=== PATIENT | male | born 1970 | race Caucasian/White ===

== ENCOUNTER 2017-12-12 09:23 | Emergency (ER) | payer SELFPAY ==
--- NOTE | 2017-12-12 09:50 | ER Document Report ---
HPI - HPI Patient complains to provider of: right shoulder pain Onset: Other - 5 days Onset/Duration: Gradual, Persistent Pain Level: 4 Context: 47 yo male with right shoulder pain for 5 days, worse with movement. makes the right upper arm muscle hurt. 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 No neck pain but does have some pain around the scapula. No chest pain, sob, or cough. - REPRODUCTIVE Reproductive: DENIES: : Past Medical History - General Information source: Patient - Social History Smoking Status: Current Every Day Smoker Frequency of alcohol use: Occasional Drug Abuse: None Occupation: consturction Family History: Reviewed & Not Pertinent - Past Medical History Cardiac Medical History: Reports: Hx Hypertension Pulmonary Medical History: Reports: Hx Asthma Past Surgical History: Reports: Hx Orthopedic Surgery - right shoulder/wrist - Immunizations Hx Diphtheria, Pertussis, Tetanus Vaccination: Yes Vertical Provider Document - CONSTITUTIONAL Agree With Documented VS: Yes Exam Limitations: No Limitations General Appearance: Mild Distress - HEENT HEENT: Normocephalic - NECK Neck: Supple - non tender c spine - RESPIRATORY Respiratory: Breath Sounds Normal, No Respiratory Distress - CARDIOVASCULAR Cardiovascular: Regular Rate, Regular Rhythm - BACK Back: Normal Inspection - MUSCULOSKELETAL/EXTREMETIES Musculoskeletal/Extremeties: Tender - rioght trapezius-mild, increased pain with right shoulder abduction, No Edema - tender right bicep muscle(has been keeping arm flexed for 5 days) Notes: 2+ radial pulse, n/v/ intact - NEURO Level of Consciousness: Awake Motor/Sensory: No Motor Deficit, No Sensory Deficit - DERM Integumentary: Warm, Dry, No Rash Course - Re-evaluation Re-evalutation: 12/12/17 10:40 Karmen in the room with the exam, I asked if he is taking anything for pain and he said tramadol but it is not helping. I asked again if he had anything else for pain and he said no. The [place] controlled substance website showed #120 oxycodone 30mg prescription filled on 11-19-17, he has this filled every month. Will check xray. 12/12/17 11:23 arthritis on xray per rad,visualized lung field clear per rad. - Vital Signs Vital signs: Temp Pulse Resp BP Pulse Ox 97.8 F 83 20 129/81 H 94 12/12/17 09:39 12/12/17 09:39 12/12/17 09:39 12/12/17 09:39 12/12/17 09:39 Discharge - Discharge Clinical Impression: right shoulder joint pain, right upper arm muscle pain, Arthritis Condition: Good Disposition: HOME, SELF-CARE Instructions: Arthritis ([facility]), Sling to be Used ([facility]), Steroid Medication Additional Instructions: sling warm compress prednisone for 1 week take ultram for pain see orthopedics if persists to er if worse. Prescriptions: Prednisone [Deltasone 10 mg Tablet] 10 mg PO ASDIR PRN #21 tablet PRN Reason: Forms: Return to Work Referrals: GÓMEZ SMITH MD [ACTIVE STAFF] - Follow up as needed
--- NOTE | 2017-12-12 11:08 | RADIOLOGY REPORT (SQ) ---
EXAM DESCRIPTION: SHOULDER RIGHT 2 OR MORE VIEWS COMPLETED DATE/TIME: 12/12/2017 10:54 am REASON FOR STUDY: right shoulder pain COMPARISON: None. NUMBER OF VIEWS: Three views. TECHNIQUE: Internal rotation, external rotation, and Y view images acquired of the right shoulder. LIMITATIONS: None. FINDINGS: MINERALIZATION: Normal. BONES: No acute fracture or dislocation. No worrisome bone lesions. JOINTS: Mild to moderate osteoarthritis of the acromioclavicular and glenohumeral joints. VISUALIZED LUNGS AND RIBS: No pneumothorax. No rib fracture. SOFT TISSUES: No radiopaque foreign body. OTHER: No other significant finding. IMPRESSION: OSTEOARTHRITIS. NO RADIOGRAPHIC EVIDENCE OF ACUTE INJURY. TECHNICAL DOCUMENTATION: JOB ID: [id number] [employer]- All Rights Reserved Reading location - IP/workstation name: [email or web address]
[2017-12-12] MEDS ORDERED: KETOROLAC TROMETHAMINE 60 MG/2 ML SDV IM ONE (11:11)
[2017-12-12] MEDS ORDERED: PREDNISONE 20 MG TABLET PO ONE (11:19)
[2017-12-12 11:27] VITALS: BP 123/80
== END 2017-12-12 11:34 | disposition home or self-care (01) ==
LOC: ER 09:23
DX: M19.011 Primary osteoarthritis, right shoulder (principal); M25.511 Pain in right shoulder; M79.601 Pain in right arm; F17.200 Nicotine dependence, unspecified, uncomplicated; I10 Essential (primary) hypertension; J45.909 Unspecified asthma, uncomplicated
CPT/HCPCS: 99283; 96372; 73030; J1885; J7512

== ENCOUNTER 2017-12-28 08:41 | Emergency (ER) | payer SELFPAY ==
[2017-12-28] MEDS ORDERED: HYDROMORPHONE HCL INJ/PF 2 MG/ML AMPULE IV ONE (09:59)
[2017-12-28] MEDS ORDERED: ONDANSETRON HCL INJ/PF 4 MG/2 ML SDV IV ONE (09:59)
[2017-12-28] MEDS ORDERED: NORMAL SALINE 1000 ML 1,000 ML IV ONE (10:00)
--- NOTE | 2017-12-28 10:03 | ER Document Report ---
ED GI/ - General Chief Complaint: Testicular Pain Stated Complaint: GENITAL CONCERNS Time Seen by Provider: 12/28/17 09:36 Mode of Arrival: Ambulatory Information source: Patient Notes: Patient presents complaining of testicular pain that woke him up around 330 this morning. Patient complains of persistent pain. Patient feels as though the left testicle is hanging lower than normal and the right testicle is riding higher than normal. Patient denies any dysuria, frequency or penile discharge. Patient denies any back pain but does report lower suprapubic tenderness. TRAVEL OUTSIDE OF THE [place] IN LAST 30 DAYS: No - HPI Patient complains to provider of: Abdominal pain, Testicular pain. No: Flank pain, Vomiting Onset: This morning Timing/Duration: Sudden Quality of pain: Sharp Pain Level: 4 Location: Suprapubic, Left testicle, Right testicle Associated symptoms: denies: Dysuria, Erection problem, Fever, Nausea, Urinary hesitancy, Urinary frequency, Urinary retention, Urinary urgency, Vomiting Exacerbated by: Denies Relieved by: Denies Similar symptoms previously: No Recently seen / treated by doctor: No - Related Data Allergies/Adverse Reactions: No Known Allergies Allergy (Verified 12/12/17 09:26) Past Medical History - General Information source: Patient - Social History Smoking Status: Current Every Day Smoker Frequency of alcohol use: daily Drug Abuse: None Occupation: [employer] Family History: Reviewed & Not Pertinent Patient has suicidal ideation: No Patient has homicidal ideation: No - Past Medical History Cardiac Medical History: Reports: Hx Hypertension Pulmonary Medical History: Reports: Hx Asthma Renal/ Medical History: Denies: Hx Peritoneal Dialysis Past Surgical History: Reports: Hx Orthopedic Surgery - right shoulder/wrist - Immunizations Hx Diphtheria, Pertussis, Tetanus Vaccination: Yes Review of Systems - Review of Systems Constitutional: No symptoms reported. denies: Fever, Recent illness EENT: No symptoms reported Cardiovascular: No symptoms reported. denies: Chest pain Respiratory: No symptoms reported. denies: Cough, Short of breath Gastrointestinal: Abdominal pain. denies: Nausea, Vomiting Genitourinary: No symptoms reported. denies: Dysuria Male Genitourinary: Testicular pain. denies: Erectile dysfunction, Penile discharge Musculoskeletal: No symptoms reported Skin: No symptoms reported Hematologic/Lymphatic: No symptoms reported Neurological/Psychological: No symptoms reported Physical Exam - Vital signs Vitals: Temp Pulse Resp BP Pulse Ox 97.5 F 98 20 144/89 H 94 12/28/17 08:50 12/28/17 08:50 12/28/17 08:50 12/28/17 08:50 12/28/17 08:50 - General General appearance: Appears well, Alert In distress: None - HEENT Head: Normocephalic Eyes: Normal Nasal: Normal Mouth/Lips: Normal Mucous membranes: Normal Neck: Normal, Supple. No: Lymphadenopathy - Respiratory Respiratory status: No respiratory distress Chest status: Nontender Breath sounds: Normal. No: Rales, Rhonchi, Stridor, Wheezing Chest palpation: Normal - Cardiovascular Rhythm: Regular Heart sounds: S1 appreciated, S2 appreciated Murmur: No - Abdominal Inspection: Normal Distension: No distension Bowel sounds: Normal Tenderness: Tender - Suprapubic Organomegaly: No organomegaly - Genitourinary Inspection: Normal Tenderness: Testicle tender - Lateral testicular tenderness, Epididymis tender - Right epididymal tenderness Cremasteric reflex: Normal Scrotum: Normal - Back Back: Normal, Nontender. No: CVA tenderness - Extremities General upper extremity: Normal inspection, Normal ROM General lower extremity: Normal inspection, Normal ROM - Neurological Neuro grossly intact: Yes Cognition: Normal [place] Coma Scale Eye Opening: Spontaneous [place] Coma Scale Verbal: Oriented [place] Coma Scale Motor: Obeys Commands [place] Coma Scale Total: 15 - Psychological Associated symptoms: Normal affect, Normal mood - Skin Skin Temperature: Warm Skin Moisture: Dry Skin Color: Normal Course - Re-evaluation Re-evalutation: 12/28/17 12:36 Patient with findings concerning for epididymitis, no concern for torsion at this time. Discussed plan of care with patient. Patient verbalized understanding and agrees with plan of care. - Vital Signs Vital signs: Temp Pulse Resp BP Pulse Ox 97.5 F 57 L 16 132/86 H 95 12/28/17 13:27 12/28/17 13:27 12/28/17 13:27 12/28/17 13:27 12/28/17 13:27 - Laboratory Result Diagrams: 12/28/17 10:25 12/28/17 10:25 Laboratory results interpreted by me: 12/28/17 12/28/17 12/28/17 10:25 10:25 10:25 WBC 11.8 H BUN 26 H Glucose 111 H Urine Urobilinogen 2.0 H Labs- Entire Visit 12/28/17 12/28/17 12/28/17 10:25 10:25 10:25 WBC 11.8 H RBC 4.95 Hgb 15.0 Hct 43.4 MCV 88 MCH 30.3 MCHC 34.5 RDW 13.2 Plt Count 218 Seg Neutrophils % 67.3 Lymphocytes % 17.9 Monocytes % 12.0 Eosinophils % 1.9 Basophils % 0.9 Absolute Neutrophils 8.0 Absolute Lymphocytes 2.1 Absolute Monocytes 1.4 Absolute Eosinophils 0.2 Absolute Basophils 0.1 Sodium 142.7 Potassium 4.0 Chloride 102 Carbon Dioxide 28 Anion Gap 13 BUN 26 H Creatinine 1.04 Est GFR ( Amer) > 60 Est GFR (Non-Af Amer) > 60 Glucose 111 H Calcium 9.6 Urine Color YELLOW Urine Appearance SLIGHTLY-CLOUDY Urine pH 5.0 Ur Specific [place] 1.032 Urine Protein NEGATIVE Urine Glucose (UA) NEGATIVE Urine Ketones NEGATIVE Urine Blood NEGATIVE Urine Nitrite NEGATIVE Urine Bilirubin NEGATIVE Urine Urobilinogen 2.0 H Ur Leukocyte Esterase NEGATIVE Urine WBC (Auto) 3 Urine RBC (Auto) 1 U Hyaline Cast (Auto) 1 Squamous Epi Cells Auto 1 Urine Mucus (Auto) RARE Urine Ascorbic Acid NEGATIVE Chlamydia DNA (PCR) N.gonorrhoeae DNA (PCR) 12/28/17 10:25 WBC RBC Hgb Hct MCV MCH MCHC RDW Plt Count Seg Neutrophils % Lymphocytes % Monocytes % Eosinophils % Basophils % Absolute Neutrophils Absolute Lymphocytes Absolute Monocytes Absolute Eosinophils Absolute Basophils Sodium Potassium Chloride Carbon Dioxide Anion Gap BUN Creatinine Est GFR ( Amer) Est GFR (Non-Af Amer) Glucose Calcium Urine Color Urine Appearance Urine pH Ur Specific [place] Urine Protein Urine Glucose (UA) Urine Ketones Urine Blood Urine Nitrite Urine Bilirubin Urine Urobilinogen Ur Leukocyte Esterase Urine WBC (Auto) Urine RBC (Auto) U Hyaline Cast (Auto) Squamous Epi Cells Auto Urine Mucus (Auto) Urine Ascorbic Acid Chlamydia DNA (PCR) NOT DETECTED N.gonorrhoeae DNA (PCR) NOT DETECTED - Diagnostic Test Radiology reviewed: Reports reviewed Discharge - Discharge Clinical Impression: Scrotal pain, Epididymitis Condition: Stable Disposition: HOME, SELF-CARE Instructions: Anti-Inflammatory Medication ([facility]), Doxycycline ([facility]), Epididymitis ([facility]), Rocephin ([facility]) Additional Instructions: Return immediately for any new or worsening symptoms Followup with your primary care provider, call tomorrow to make a followup appointment Wear supportive underwear for comfort Follow-up with urology for further evaluation Prescriptions: Doxycycline Hyclate 100 mg PO BID #20 capsule Naproxen [Naprosyn 250 Nmg Tablet] 1 tab PO BID #14 tablet Forms: Smoking Cessation Education, Return to Work Referrals: VINEET VALDEZ DO [Primary Care Provider] - Follow up as needed [facility] [Provider Group] - Follow up as needed [facility] [Provider Group] - Follow up as needed
[2017-12-28 10:37] LABS: ABSOLUTE BASOPHILS # (AUTO) 0.1 10^3/uL (0.0-0.2); ABSOLUTE EOSINOPHILS # (AUTO) 0.2 10^3/uL (0.0-0.6); ABSOLUTE LYMPHOCYTES (AUTO) 2.1 10^3/uL (0.5-4.7); ABSOLUTE MONOCYTES (AUTO) 1.4 10^3/uL (0.1-1.4); BASOPHILS % (AUTO) 0.9 % (0-2); EOSINOPHILS % (AUTO) 1.9 % (0-6); HEMATOCRIT 43.4 % (37.9-51.0); LYMPHOCYTES % (AUTO) 17.9 % (13-45); MEAN CORPUSCULAR HEMOGLOBIN 30.3 pg (27.0-33.4); MEAN CORPUSCULAR HGB CONC 34.5 g/dL (32.0-36.0); MEAN CORPUSCULAR VOLUME 88 fl (80-97); PLATELET COUNT 218 10^3/uL (150-450); RED BLOOD COUNT 4.95 10^6/uL (4.35-5.55); RED CELL DISTRIBUTION WIDTH 13.2 % (11.5-14.0); SEGMENTED NEUTROPHILS % (AUTO) 67.3 % (42-78); TOTAL CELLS COUNTED % (AUTO) 100 %; WHITE BLOOD COUNT 11.8 10^3/uL (4.0-10.5)
[2017-12-28 10:56] LABS: ANION GAP 13 (5-19); BLOOD UREA NITROGEN 26 mg/dL (7-20); CALCIUM 9.6 mg/dL (8.4-10.2); CARBON DIOXIDE 28 mmol/L (22-30); CHLORIDE 102 mmol/L (98-107); GLUCOSE 111 mg/dL (75-110); SODIUM 142.7 mmol/L (137-145)
[2017-12-28 11:23] LABS: APPEARANCE,URINE SLIGHTLY-CLOUDY; BILIRUBIN,URINE NEGATIVE (NEGATIVE); GLUCOSE, URINE NEGATIVE (NEGATIVE); KETONES,URINE NEGATIVE (NEGATIVE); LEUKOCYTE ESTERASE,URINE NEGATIVE (NEGATIVE); NITRITE,URINE NEGATIVE (NEGATIVE); PROTEIN,URINE NEGATIVE (NEGATIVE); URINE SPECIFIC GRAVITY 1.032
[2017-12-28 11:25] LABS: COLOR,URINE YELLOW
--- NOTE | 2017-12-28 11:48 | RADIOLOGY REPORT (SQ) ---
EXAM DESCRIPTION: U/S SCROTUM W/DOPPLER COMPLETED DATE/TIME: 12/28/2017 11:28 am REASON FOR STUDY: testicular pain COMPARISON: None. TECHNIQUE: Static and realtime chen scale imaging of the scrotum and testes. Selected color Doppler and spectral images recorded to document blood flow. LIMITATIONS: None. FINDINGS: RIGHT: TESTICLE: Normal size. Normal echotexture. Normal blood flow. No mass. EPIDIDYMIS: There is heterogeneous echogenicity in the epididymal tail with increased vascularity whi ch could be related to focal epididymitis. Clinical correlation is recommended. HYDROCELE OR VARICOCELE: No. HERNIA OR EXTRA-TESTICULAR MASS: No. OTHER: No other significant finding. LEFT: TESTICLE: Normal size. Normal echotexture. Normal blood flow. No mass. EPIDIDYMIS: Normal. HYDROCELE OR VARICOCELE: Small hydrocele is identified with mobile internal debris. HERNIA OR EXTRA-TESTICULAR MASS: No. OTHER: No other significant finding. IMPRESSION: NO EVIDENCE OF TESTICULAR MASS OR TORSION. There is heterogeneous echogenicity in the epididymal tail with increased vascularity which could be related to focal epididymitis. Clinical co rrelation is recommended. Small hydrocele with internal debris is identified on the left. Other fin dings as noted above TECHNICAL DOCUMENTATION: JOB ID: [id number] [employer]- All Rights Reserved Reading location - IP/workstation name: [email or web address]
[2017-12-28] MEDS ORDERED: CEFTRIAXONE INJ 250 MG VIAL IV ONE (12:12)
[2017-12-28] MEDS ORDERED: DOXYCYCLINE HYCLATE 100 MG TABLET PO ONE (12:13)
[2017-12-28 13:34] VITALS: BP 132/86
[2017-12-28 14:12] LABS: CHLAM PCR NOT DETECTED (NOT DETECT); GON PCR NOT DETECTED (NOT DETECT)
== END 2017-12-28 13:34 | disposition home or self-care (01) ==
LOC: ER 08:41
DX: N45.1 Epididymitis (principal); N50.82 Scrotal pain; R10.9 Unspecified abdominal pain; F17.200 Nicotine dependence, unspecified, uncomplicated; I10 Essential (primary) hypertension; J45.909 Unspecified asthma, uncomplicated
CPT/HCPCS: 99284; 96361; 96375; 96365; 36415; 85025; 80048; 81001; 87491; 87591; 76870; 93976; J1170; J7030; J0696